=== PATIENT | female | born 1995 | race Hispanic/Latino ===

== ENCOUNTER 2022-07-08 18:28 | Emergency (ER) | payer SELFPAY ==
[2022-07-08] MEDS ORDERED: Ketorolac Tromethamine 30 MG/ML VIAL ONE (19:47)
[2022-07-08] MEDS ORDERED: Metoclopramide HCl 10 MG/2 ML VIAL ONE (19:47)
== END 2022-07-08 21:55 | disposition home or self-care (01) ==
LOC: CSHERS 18:28
DX: R51.9 Headache, unspecified (principal)
CPT/HCPCS: 96365; 96366; 96375; J1885; J2765